=== PATIENT | female | born 1995 | race Caucasian/White ===

== ENCOUNTER 2016-12-19 09:08 | Emergency (ER) | payer SELFPAY ==
[~2016-12-19] VITALS: Ht 152.4 cm; Wt 68.0 kg
[~2016-12-19 09:08] MED LIST: MOME17I; MONT10TA2 PO; PRED20 PO; WAL-10TA2 PO; ZITH250T PO
[2016-12-19 09:10] VITALS: BP 120/84; PULSE 104; RESP 20; TEMP 98.2; O2SAT 99
[2016-12-19] MEDS ORDERED: IBUPROFEN 800 MG TAB PO ONE (09:30)
--- NOTE | 2016-12-19 09:32 | PD ---
HPI Chief Complaint: Cold / Flu Symptoms Time Seen by Provider: 09:32 Travel History International Travel<30 days: No Contact w/Intl Traveler<30days: No Traveled to known affect area: No History of Present Illness HPI 21-year-old female presents to the emergency Department with complaint of sinus pressure, nasal congestion, ear pressure for 1 week and then she got better for about 2 or 3 days and then for the last 3 days has had the same symptoms. She denies cough. History of asthma and reports chest tightness and shortness of breath at times with relief after using her inhaler. She denies chest tightness or shortness of breath at this time. Has not taken her temperature and cannot report a MAXIMUM TEMPERATURE. Says her mom has told her she felt like she had a fever. Denies abdominal pain, nausea, vomiting. Has been using Afrin and loratadine with minimal symptom relief. Has not taken any other medications or tried any other treatments to alleviate her symptoms. Allergies to codeine, latex, Sudafed. No other modifying factors or associated signs and symptoms. PFSH Past Medical History Asthma: Yes Diminished Hearing: No Respiratory: Yes (ASTHMA) Immunizations Current: Yes ?: Not LMP: 11/17/16 Past Surgical History Oral Surgery: Yes Social History Alcohol Use: No Tobacco Use: No Substance Use: No Allergies-Medications (Allergen,Severity, Reaction): Coded Allergies: Codeine (Verified Allergy, Unknown, 06/10/15) Latex (Verified Allergy, Unknown, 06/10/15) Sudafed (Verified Allergy, Unknown, 06/10/15) Reported Meds & Prescriptions Reported Meds & Active Scripts Active Azithromycin 500 Mg Tab 500 Mg PO DAILY Zithromax Z-Jimmy (Azithromycin) 250 Mg Tab 250 Mg PO DIRECTED 5 Days 500 MG (2 TABLETS) PO ON DAY 1, THEN 250 MG (1 TABLET) PO ON DAYS 2 TO 5. Deltasone 20 Mg Tab (Prednisone) 20 Mg Tab 20 Mg PO BID 5 Days Reported Singulair (Montelukast Sodium) 10 Mg Tab 10 Mg PO HS Nasonex (Mometasone Furoate) 50 Mcg/Ac Spr 2 [place] NA DAILY SPRAY IN EACH NOSTRIL Loratadine 10 Mg Tab 10 Mg PO DAILY Review of Systems Except as stated in HPI: all other systems reviewed are Neg Physical Exam Narrative GENERAL: Well-nourished, well-developed female patient, in no acute distress SKIN: Warm and dry. No rash. HEAD: Atraumatic. Normocephalic. EYES: Pupils equal and round at 3 mm with brisk reaction. No scleral icterus. No injection or drainage. PERRLA. ENT: Mucosa pink and moist. No erythema or exudates. No uvular edema. No uvular , palatal, or tonsillar deviation. Airway patent. Nasal congestion noted. EARS: Bilateral pinnae and external canals appear within normal limits. Bilateral tympanic membranes without erythema, dullness or perforation. NECK: Trachea midline. No lymphadenopathy. CARDIOVASCULAR: Regular rate and rhythm. No murmur appreciated. RESPIRATORY: No accessory muscle use. Clear to auscultation. Breath sounds equal bilaterally. GASTROINTESTINAL: Abdomen soft, non-tender, nondistended. Hepatic and splenic margins not palpable. Bowel sounds are active 4 quadrants. MUSCULOSKELETAL: No obvious deformities. No clubbing. No cyanosis. No edema. NEUROLOGICAL: Awake and alert. Oriented 3. No obvious cranial nerve deficits. Motor grossly within normal limits. Normal speech. Moves all extremities. 5/5 strength to all extremities. PSYCHIATRIC: Appropriate mood and affect; insight and judgment normal. Data Data Last Documented VS Vital Signs Date Time Temp Pulse Resp B/P Pulse Ox O2 Delivery O2 Flow Rate FiO2 12/19/16 09:10 98.2 104 20 120/84 99 Room Air Orders MDM Medical Decision Making Medical Screen Exam Complete: Yes Emergency Medical Condition: Yes Medical Record Reviewed: Yes Differential Diagnosis Upper respiratory infection, sinusitis, bronchitis, asthma exacerbation Narrative Course 21-year-old female physical examination consistent with a URI. She is afebrile and nontoxic-appearing. Patient requested azithromycin antibiotic for home. I will prescribe antibiotic secondary to length of illness. Azithromycin prescribed for home. Patient verbalizes understanding and agreement with treatment plan. Patient is medically cleared and stable for discharge. Discussed reasons to return to the emergency department. Instructed patient to follow up with primary care provider. Patient agrees with treatment plan. The patients vital signs are stable and the patient is stable for outpatient follow- up and treatment. Patient discharged home, stable and in no acute distress. Diagnosis Primary Impression: URI (upper respiratory infection) Qualified Code: J06.9 - Upper respiratory tract infection, unspecified type Referrals: Primary Care Physician Patient Instructions: General Instructions, Safe Use of Cough and Cold Medicines (ED), Upper Respiratory Infection (ED) Departure Forms: School Release, Return to School Date: Dec 21, 2016 Tests/Procedures Additional Instructions: Antibiotics as prescribed and complete full course Ibuprofen or Tylenol as instructed and as needed for fever/pain [id number] cough and cold medications as directed and as needed for symptom management Get plenty of sleep/rest Drink plenty of fluids to prevent dehydration; popsicles and Gatorade Use an air humidifier/turn off ceiling fans Follow-up with primary care provider Return immediately to the emergency department with worsening of symptoms Med/Other Pt SpecificInfo: Prescription(s) given Scripts Azithromycin 500 Mg [id number] Mg PO DAILY #5 TAB Ref 0 Prov:Elisabet Sosa 12/19/16 Disposition: 01 DISCHARGE HOME Condition: Stable Elisabet Sosa Dec 19, 2016 09:32
[2016-12-19] MEDS ORDERED: AZIT500T2 PO (09:33)
== END 2016-12-19 10:00 | disposition home or self-care (01) ==
LOC: NEPK 09:08
DX: J06.9 Acute upper respiratory infection, unspecified (principal); Z87.09 Personal history of other diseases of the respiratory system
CPT/HCPCS: 99283

== ENCOUNTER 2017-04-23 20:33 | Emergency (ER) | payer SELFPAY ==
[~2017-04-23] VITALS: Ht 160 cm; Wt 65.0 kg
[~2017-04-23 20:33] MED LIST changes: +AZIT500T2 PO
[2017-04-23 20:36] VITALS: BP 135/69; PULSE 85; RESP 16; TEMP 98.3; O2SAT 98
--- NOTE | 2017-04-23 20:58 | PD ---
Physical Exam Time Seen by Provider: 20:56 Narrative 21 y/o female here with white vaginal d/c for 2.5 weeks, imrpoved with monistat , worsened past few days. She notes that she has had a new sexual partner one week ago. Vital signs reviewed. Seen at triage desk. Awaiting bed placement. Data Data Last Documented VS Vital Signs Date Time Temp Pulse Resp B/P Pulse Ox O2 Delivery O2 Flow Rate FiO2 04/23/17 20:36 98.3 85 16 135/69 98 MDM Medical Record Reviewed: Yes Supervised Visit with RICHARD: Rich Aranda Apr 23, 2017 20:57
[2017-04-23 21:39] LABS: BLOOD, URINE NEG (NEG); COMMENT (UR) CULT NOT INDICATED; CULTURE IF INDICATED CULT NOT INDICATED; GLUCOSE,URINE NEG (NEG); KETONE, URINE NEG (NEG); NITRITE,URINE NEG (NEG); PH, URINE 6.5 (5.0-8.5); SQUAMOUS EPITHELIAL CELL URINE 7 /hpf (0-5); URINE COLOR YELLOW (YELLW/STRAW)
--- NOTE | 2017-04-23 22:25 | PD ---
HPI Chief Complaint: Coat Checker Problem/Complaint Time Seen by Provider: 22:18 Travel History International Travel<30 days: No Contact w/Intl Traveler<30days: No Traveled to known affect area: No History of Present Illness HPI Patient is a 21-year-old female presents emergency department for a thick white discharge per vagina for the past week. Patient states that she had a sexual encounter with a new partner last week and she had some pain in the left lower quadrant while they were having intercourse which caused her to hold intercourse. She states she has a history of PCO asfor similar to her prior flares. She states the pain is fairly mild since. She states that she tried [id number] treatment for yeast infection and did not help. Associated symptoms are itching and burning. Denies any diarrhea constipation nausea or vomiting or fevers. PFSH Past Medical History Asthma: Yes Diminished Hearing: No Respiratory: Yes (ASTHMA) Immunizations Current: Yes Past Surgical History Oral Surgery: Yes Social History Alcohol Use: No Tobacco Use: No Substance Use: No Allergies-Medications (Allergen,Severity, Reaction): Coded Allergies: Naproxen (Verified Allergy, Mild, Itching, 04/23/17) Codeine (Verified Allergy, Unknown, 04/23/17) Latex (Verified Allergy, Unknown, 04/23/17) Sudafed (Verified Allergy, Unknown, 04/23/17) Reported Meds & Prescriptions Reported Meds & Active Scripts Active Flagyl (Metronidazole) 500 Mg Tab 500 Mg PO BID 7 Days Reported Ventolin Hfa 18 GM Inh (Albuterol Sulfate) 90 Mcg/Act Aer 2 Puff INH Q4-6H PRN Symbicort Inh (Budesonide/Formoterol Fumarate) 80-4.5 Mcg/Act Aero 2 Puff INH Q12HR Claritin (Loratadine) 10 Mg Cap 10 Mg PO DAILY Afrin Nasal [place] (Oxymetazoline HCl) 0.05% [place] 2-3 [place] EACH NARE Q12H PRN Flonase Nasal [place] (Fluticasone Nasal [place]) 50 Mcg/Act [place] 50 Mcg EACH NARE BID Review of Systems Except as stated in HPI: all other systems reviewed are Neg Physical Exam Narrative GENERAL: Well-developed well-nourished, laughing with her friend in no obvious distress. SKIN: Focused skin assessment warm/dry. HEAD: Atraumatic. Normocephalic. EYES: Pupils equal and round. No scleral icterus. No injection or drainage. ENT: No nasal bleeding or discharge. Mucous membranes pink and moist. NECK: Trachea midline. No JVD. CARDIOVASCULAR: Regular rate and rhythm. No murmur appreciated. RESPIRATORY: No accessory muscle use. Clear to auscultation. Breath sounds equal bilaterally. GASTROINTESTINAL: Abdomen soft, non-tender, nondistended. Hepatic and splenic margins not palpable. GENITOURINARY: patient exam is performed with female nurse relief pharmacist present at all times. Grossly normal external female genitalia, patient has discharge which has both yeast characteristics and BV characteristics to it. No cervical motion tenderness no bimanual tenderness. MUSCULOSKELETAL: No obvious deformities. No clubbing. No cyanosis. No edema. NEUROLOGICAL: Awake and alert. No obvious cranial nerve deficits. Motor grossly within normal limits. Normal speech. PSYCHIATRIC: Appropriate mood and affect; insight and judgment normal. Data Data Last Documented VS Vital Signs Date Time Temp Pulse Resp B/P Pulse Ox O2 Delivery O2 Flow Rate FiO2 04/23/17 23:46 18 04/23/17 20:36 98.3 85 135/69 98 Orders Urinalysis - C+S If Indicated (04/23/17 20:59) Ed Urine Pregnancytest Poc (04/23/17 20:59) Wet Prep Profile (04/23/17 22:25) Gc And Chlamydia Pcr (04/23/17 22:25) Fluconazole 400 Mg Premix Bag (Diflucan (04/24/17 00:15) Fluconazole (Diflucan) (04/24/17 00:15) Labs Laboratory Tests Test 04/23/17 04/23/17 21:00 23:40 Urine Color YELLOW Urine Turbidity HAZY Urine pH 6.5 Urine Specific [place] 1.020 Urine Protein NEG mg/dL Urine Glucose (UA) NEG mg/dL Urine Ketones NEG mg/dL Urine Occult Blood NEG Urine Nitrite NEG Urine Bilirubin NEG Urine Urobilinogen LESS THAN 2.0 MG/DL Urine Leukocyte Esterase LARGE Urine RBC 1 /hpf Urine WBC 4 /hpf Urine Squamous Epithelial 7 /hpf Cells Microscopic Urinalysis Comment CULT NOT INDICATED Clue Cells (Wet Prep) NONE SEEN Vaginal Trichomonas (Wet Prep) NONE SEEN Vaginal Yeast (Wet Prep) NONE SEEN MDM Medical Decision Making Medical Screen Exam Complete: Yes Emergency Medical Condition: Yes Differential Diagnosis BV, CVA, STD. Ovarian pathology was briefly considered but her physical exam shows no tenderness. Narrative Course Patient roomed emerged permit, abdomen is benign, physical exam of her vaginal vault shows BV versus CVA. Will be given Diflucan and discharged on Flagyl. She was offered empiric therapy for STDs and she declined at this time. She is stable for discharge. test negative. Diagnosis Primary Impression: BV (bacterial vaginosis) Med/Other Pt SpecificInfo: Prescription(s) given Scripts Metronidazole (Flagyl)500 Mg Chd030 Mg PO BID 7 Days Ref 0 Prov:Dav Barrios MD 04/24/17 Disposition: DISCHARGE HOME Condition: Stable Dav Barrios MD Apr 23, 2017 22:25
[2017-04-23] MEDS ORDERED: SYMB80AE INH (23:52)
[2017-04-23] MEDS ORDERED: CLAR10CA3 PO (23:52)
[2017-04-23] MEDS ORDERED: VENTAER INH (23:52)
[2017-04-23] MEDS ORDERED: AFRI0.052 EACH NARE (23:52)
[2017-04-23] MEDS ORDERED: FLUT1SPR5 EACH NARE (23:52)
[2017-04-24] MEDS ORDERED: METR-1 PO (00:03)
[2017-04-24] MEDS ORDERED: FLUCONAZOLE 400 MG PREMIX BAG 200 ML IV ONE (00:15)
[2017-04-24] MEDS ORDERED: FLUCONAZOLE 100 MG TAB PO ONE (00:15)
[2017-04-24 01:20] LABS: CHLAMYDIA PCR NOT DETECTED (NOT DETECT); NEISSERIA PCR NOT DETECTED (NOT DETECT)
== END 2017-04-24 00:35 | disposition home or self-care (01) ==
LOC: NEPD 20:33
DX: N76.0 Acute vaginitis (principal); B96.89 Other specified bacterial agents as the cause of diseases classified elsewhere; J45.909 Unspecified asthma, uncomplicated
CPT/HCPCS: 81001; 84703; 87210; 87491; 87591; 99283

== ENCOUNTER 2017-08-21 11:42 | Emergency (ER) | payer OTHER ==
[~2017-08-21 11:42] MED LIST changes: +AFRI0.052 EACH NARE; -AZIT500T2 PO; +CLAR10CA3 PO; +FLUT1SPR5 EACH NARE; +METR-1 PO; -MOME17I; -MONT10TA2 PO; -PRED20 PO; +SYMB80AE INH; +VENTAER INH; -WAL-10TA2 PO; -ZITH250T PO
[2017-08-21 11:45] VITALS: BP 122/80; PULSE 129; RESP 18; TEMP 98.6; O2SAT 99
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
[2017-08-21] MEDS ORDERED: SODIUM CHLOR 0.9% 1000 ML INJ 1,000 ML IV ONE ×2 (14:15)
[2017-08-21] MEDS ORDERED: ONDANSETRON ODT 4 MG TAB PO ONE (14:15)
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
[2017-08-21 15:31] LABS: AUTOMATED NEUTROPHIL # 6.4 TH/MM3 (1.8-7.7); BASOPHIL % 0.2 % (0.0-2.0); EOSINOPHIL % 0.3 % (0.0-4.0); HEMATOCRIT 40.2 % (35.0-46.0); HEMO FLAGS DIFF FINAL; LYMPH % 10.3 % (9.0-44.0); LYMPHOCYTE # 0.8 TH/MM3 (1.0-4.8); MEAN CELL VOLUME 90.5 FL (80.0-100.0); MEAN CORPUSCULAR HEMOGLOBIN 30.9 PG (27.0-34.0); MEAN CORPUSCULAR HGB CONC 34.1 % (32.0-36.0); MONO % 9.4 % (0.0-8.0); NEUT % 79.8 % (16.0-70.0); PLATELET COUNT 194 TH/MM3 (150-450); RED BLOOD COUNT 4.44 MIL/MM3 (4.00-5.30); RED CELL DISTRIBUTION WIDTH 12.5 % (11.6-17.2)
[2017-08-21 15:56] LABS: BICARBONATE 27.3 MEQ/L (21.0-32.0); POTASSIUM 3.6 MEQ/L (3.5-5.1)
[2017-08-21] MEDS ORDERED: ROBA750T PO (16:10)
[2017-08-21] MEDS ORDERED: ZOFR4TAB3 SL (16:10)
[2017-08-21 16:54] VITALS: BP 119/58; PULSE 100; RESP 18; TEMP 98.9; O2SAT 100
== END 2017-08-21 19:00 | disposition home or self-care (01) ==
LOC: NEPK 11:42
DX: S39.012A Strain of muscle, fascia and tendon of lower back, initial encounter (principal); S20.212A Contusion of left front wall of thorax, initial encounter; S40.021A Contusion of right upper arm, initial encounter; K52.9 Noninfective gastroenteritis and colitis, unspecified; V42.6XXA Car passenger injured in collision with two- or three-wheeled motor vehicle in traffic accident, initial encounter
CPT/HCPCS: 71020; 80048; 85025; 96360; 96361; 99284; J7030

== ENCOUNTER 2017-09-06 17:01 | Emergency (ER) | payer SELFPAY ==
[~2017-09-06] VITALS: Ht 152.4 cm; Wt 68.0 kg
[~2017-09-06 17:01] MED LIST changes: -AFRI0.052 EACH NARE; -FLUT1SPR5 EACH NARE; -METR-1 PO; +ROBA750T PO; -SYMB80AE INH; -VENTAER INH; +ZOFR4TAB3 SL
[2017-09-06 17:02] VITALS: BP 124/76; PULSE 89; RESP 16; TEMP 97.9; O2SAT 98
[2017-09-06] MEDS ORDERED: HUMIBIDDM PO (18:45)
[2017-09-06] MEDS ORDERED: TIZA2CAP3 PO (18:45)
[2017-09-06] MEDS ORDERED: MELO7.5T27 PO (18:45)
--- NOTE | 2017-09-06 18:58 | PD ---
HPI Chief Complaint: Cold / Flu Symptoms Time Seen by Provider: 18:40 Travel History International Travel<30 days: No Contact w/Intl Traveler<30days: No Traveled to known affect area: No History of Present Illness HPI 22-year-old female presents to emergency department with a cough for one month. Patient states that her cough has been productive of thick yellow-green sputum and she is also had nasal congestion. States she has not been evaluated for this cough however, she has been advised to use multiple regimens to include Mucinex and Afrin Afrin and this has not reduced her cough. States she has been using her albuterol inhalers as well but continues to cough. States she has chest wall discomfort with laying down. Patient denies recent travel, surgeries, immobilizations, fractures or blood disorders. Patient denies shortness of breath. 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 Patient has a history of asthma and does not follow-up with a area operations director or primary care physician regularly. PFSH Past Medical History Asthma: Yes Diminished Hearing: No Respiratory: Yes (ASTHMA) Immunizations Current: Yes ?: Not LMP: 08/2017 Past Surgical History Oral Surgery: Yes Social History Alcohol Use: Yes (OCC) Tobacco Use: No Substance Use: Yes (MARIJUANA OCC) Allergies-Medications (Allergen,Severity, Reaction): Coded Allergies: naproxen (Unverified Allergy, Mild, Itching, 09/06/17) codeine (Unverified Allergy, Unknown, 09/06/17) latex (Unverified Allergy, Unknown, 09/06/17) pseudoephedrine (Unverified Allergy, Unknown, 09/06/17) Reported Meds & Prescriptions Reported Meds & Active Scripts Active Tessalon Perles (Benzonatate) 100 Mg Cap 200 Mg PO TID PRN Prednisone 20 Mg Tab 20 Mg PO BID 5 Days Azithromycin 250 Mg Tab 250 Mg PO DIRECTED Take 2 tabs (500 mg) on day 1 then 1 tab daily x 4 days. Zofran Odt (Ondansetron Odt) 4 Mg Tab 4 Mg SL Q8HR PRN Reported Mucinex DM (Dextromethorphan-Guaifenesin) 30-600 Mg Tab 2 Tab PO DAILY PRN Meloxicam 7.5 Mg Tab 7.5 Mg PO BID PRN Tizanidine (Tizanidine HCl) 2 Mg Cap 2 Mg PO BID PRN Claritin (Loratadine) 10 Mg Cap 10 Mg PO DAILY Review of Systems Except as stated in HPI: all other systems reviewed are Neg Physical Exam Narrative GENERAL: Well-developed well-nourished in no apparent distress SKIN: Focused skin assessment warm/dry. HEAD: Atraumatic. Normocephalic. EYES: Pupils equal and round. No scleral icterus. No injection or drainage. ENT: No nasal bleeding or discharge. Mucous membranes pink and moist. Pharynx not injected without tonsillar atrophy or exudate. NECK: Trachea midline. No JVD. No lymphadenopathy CARDIOVASCULAR: Regular rate and rhythm. No murmur appreciated. RESPIRATORY: No accessory muscle use. Faint diffuse wheezes, without rales. GASTROINTESTINAL: Abdomen soft, non-tender, nondistended. MUSCULOSKELETAL: No obvious deformities. No clubbing. No cyanosis. No edema. No CVA tenderness NEUROLOGICAL: Awake and alert. No obvious cranial nerve deficits. Motor grossly within normal limits. Normal speech. PSYCHIATRIC: Appropriate mood and affect; insight and judgment normal. Data Data Last Documented VS Vital Signs Date Time Temp Pulse Resp B/P (MAP) Pulse Ox O2 Delivery O2 Flow Rate FiO2 09/06/17 20:45 09/06/17 17:02 97.9 89 16 98 Orders Orders Chest, Single Ap (09/06/17 ) Methylprednisolone So Succ Inj (Solumedr (09/06/17 19:00) Ed Discharge Order (09/06/17 20:31) MDM Medical Decision Making Medical Screen Exam Complete: Yes Emergency Medical Condition: Yes Differential Diagnosis Asthma exacerbation, bronchitis, pneumonia Narrative Course 22-year-old female presents to emergency department with a cough for one month. Patient states that her cough has been productive of thick yellow-green sputum and she is also had nasal congestion. States she has not been evaluated for this cough however, she has been advised to use multiple regimens to include Mucinex and Afrin Afrin and this has not reduced her cough. States she has been using her albuterol inhalers as well but continues to cough. States she has chest wall discomfort with laying down. Patient denies recent travel, surgeries, immobilizations, fractures or blood disorders. Patient denies shortness of breath. 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 Patient has a history of asthma and does not follow-up with a area operations director or primary care physician regularly. Vital signs stable. I explained to the mother and patient that it is likely that the cough is related to an extended viral syndrome. However, will evaluate for possible pneumonia vs asthma exacerbation. Administered solumedol 125mg in the ED. Chest xray pending as of transfer of care to Rich Delatorre PA-C. Referrals: [facility] Benzonatate (Tessalon Perles) 100 Mg Cap 200 MG PO TID Y for COUGH, #30 CAP 0 Refills Prov: Luis Martínez MD 09/06/17 Prednisone (Prednisone) 20 Mg Tab 20 MG PO BID for 5 Days, #10 TAB 0 Refills Prov: Luis Martínez MD 09/06/17 Azithromycin (Azithromycin) 250 Mg Tab 250 MG PO DIRECTED for Infection, #6 TAB 0 Refills Take 2 tabs (500 mg) on day 1 then 1 tab daily x 4 days. Prov: Luis Martínez MD 09/06/17 Disposition: 01 DISCHARGE HOME Condition: Stable Pat Valdez Sep 06, 2017 18:58
[2017-09-06] MEDS ORDERED: methylPREDNISolone SOD SUCC 125 MG/2 ML VIAL IV PUSH ONE (19:00)
--- NOTE | 2017-09-06 19:54 | RADRPT ---
EXAM DATE/TIME: 09/06/2017 19:18 [place] COMPARISON: No previous studies available for comparison. INDICATIONS : Cough, shortness of breath for 1 month MEDICAL HISTORY : Asthma SURGICAL HISTORY : None. ENCOUNTER: Initial ACUITY: 1 month PAIN SCORE: 0/10 LOCATION: Bilateral chest FINDINGS: A single view of the chest demonstrates the lungs to be symmetrically aerated without evidence of mas s, infiltrate or effusion. The cardiomediastinal contours are unremarkable. Osseous structures are intact. CONCLUSION: The lungs are clear. Lucius Jack MD on September 06, 2017 at 19:52 Board Certified Radiologist. This report was verified electronically.
[2017-09-06] MEDS ORDERED: AZIT250T3 PO (20:32)
[2017-09-06] MEDS ORDERED: BENZ100 PO (20:32)
[2017-09-06] MEDS ORDERED: PRED20 PO (20:32)
--- NOTE | 2017-09-06 20:35 | PD ---
Physical Exam Time Seen by Provider: 20:25 Data Data Last Documented VS Vital Signs Date Time Temp Pulse Resp B/P (MAP) Pulse Ox O2 Delivery O2 Flow Rate FiO2 09/06/17 17:02 97.9 89 16 124/76 (92) 98 Orders Orders Chest, Single Ap (09/06/17 ) Methylprednisolone So Succ Inj (Solumedr (09/06/17 19:00) Ed Discharge Order (09/06/17 20:31) MDM Medical Record Reviewed: Yes Supervised Visit with RICHARD: No Narrative Course Please see previous providers notes. This patient was signed out to me to follow-up on chest x-ray results. She has a history of asthma and has had a productive cough for greater than 1 month. She has received [employer] mental treatment prior to my examination she is feeling some improvement. Lungs are currently clear to auscultation. Chest x-ray is normal. The patient is being discharged with azithromycin, prednisone, Tessalon. Diagnosis Primary Impression: Asthma exacerbation Referrals: [facility] Additional Instruction: Medication as prescribed. Albuterol nebulizer every 4 hours as needed for wheezing. Stay well hydrated well-nourished. Follow up with primary care physician and return for any emergent medical conditions. Med/Other Pt SpecificInfo: Prescription(s) given Scripts Benzonatate (Tessalon Perles) 100 Mg Cap 200 MG PO TID Y for COUGH, #30 CAP 0 Refills Prov: Luis Martínez MD 09/06/17 Prednisone (Prednisone) 20 Mg Tab 20 MG PO BID for 5 Days, #10 TAB 0 Refills Prov: Luis Martínez MD 09/06/17 Azithromycin (Azithromycin) 250 Mg Tab 250 MG PO DIRECTED for Infection, #6 TAB 0 Refills Take 2 tabs (500 mg) on day 1 then 1 tab daily x 4 days. Prov: Luis Martínez MD 09/06/17 Disposition: 01 DISCHARGE HOME Condition: Stable Rich Grissom Sep 06, 2017 20:35
== END 2017-09-06 20:49 | disposition home or self-care (01) ==
LOC: NEPD 17:01
DX: J45.901 Unspecified asthma with (acute) exacerbation (principal); R07.89 Other chest pain
CPT/HCPCS: 71010; 96372; 99284; J2930

== ENCOUNTER 2017-09-23 10:26 | Emergency (ER) | payer SELFPAY ==
[~2017-09-23] VITALS: Ht 152.4 cm; Wt 67.0 kg
[~2017-09-23 10:26] MED LIST changes: +AZIT250T3 PO; +BENZ100 PO; +HUMIBIDDM PO; +MELO7.5T27 PO; +PRED20 PO; -ROBA750T PO; +TIZA2CAP3 PO
[2017-09-23 10:28] VITALS: BP 112/81; PULSE 81; RESP 16; TEMP 98.3; O2SAT 97
--- NOTE | 2017-09-23 11:48 | PD ---
HPI Chief Complaint: Headache Time Seen by Provider: 11:40 Travel History International Travel<30 days: No Contact w/Intl Traveler<30days: No Traveled to known affect area: No History of Present Illness HPI 22-year-old female presents to the emergency Department with complaint of migraine headache 3 hours. She has history of migraine headaches since she was 17 years old. This headache is consistent with past headaches. She is seeing a neurologist at [facility] and has an appointment either tomorrow or Saturday. She had a CT of her brain and an MRI in the past month. She does not know the results. She is taking meloxicam and Tizanidine for symptom management. Says her headache is gotten better since taking these medications and has gone from a 9 to a 7/10. Reports phonophobia. Denies photophobia. Reports nausea earlier today, without vomiting. Denies nausea at this time. Denies focal deficits or weakness. Denies confusion, disorientation, change in mentation, slurred speech. Reports history of vision loss with migraines. Has some blurriness this morning, but not now. Headache was frontal and is now moving to the back of her head. Describes it as a pounding sensation. Rates it 7/10. Allergies to codeine, latex, naproxen, pseudoephedrine. No primary care provider. History of asthma. Has no other medical complaints. No other modifying factors or associated signs and symptoms. PFSH Past Medical History Asthma: Yes Diminished Hearing: No Respiratory: Yes (ASTHMA) Immunizations Current: Yes ?: Not LMP: 08/2017 Past Surgical History Oral Surgery: Yes Social History Alcohol Use: Yes (OCC) Tobacco Use: No Substance Use: Yes (MARIJUANA OCC) Allergies-Medications (Allergen,Severity, Reaction): Coded Allergies: naproxen (Unverified Allergy, Mild, Itching, 09/23/17) codeine (Unverified Allergy, Unknown, 09/23/17) latex (Unverified Allergy, Unknown, 09/23/17) pseudoephedrine (Unverified Allergy, Unknown, 09/23/17) Reported Meds & Prescriptions Reported Meds & Active Scripts Active Zofran Odt (Ondansetron Odt) 4 Mg Tab 4 Mg SL Q8HR PRN Reported Meloxicam 7.5 Mg Tab 7.5 Mg PO BID PRN Tizanidine (Tizanidine HCl) 2 Mg Cap 2 Mg PO BID PRN Claritin (Loratadine) 10 Mg Cap 10 Mg PO DAILY Review of Systems Except as stated in HPI: all other systems reviewed are Neg Physical Exam Narrative GENERAL: Well-nourished, well-developed female patient, in no acute distress SKIN: Warm and dry. HEAD: Atraumatic. Normocephalic. No facial droop noted. Tongue midline. Finger to nose test normal. EYES: Pupils equal and round at 3 mm with brisk reaction. No scleral icterus. No injection or drainage. PERRLA. EOMI. ENT: Mucosa pink and moist. Airway patent. NECK: Trachea midline. No lymphadenopathy. CARDIOVASCULAR: Regular rate. RESPIRATORY: No accessory muscle use. GASTROINTESTINAL: Flat. MUSCULOSKELETAL: No obvious deformities. No clubbing. No cyanosis. No edema. NEUROLOGICAL: Awake and alert. Oriented 3. No obvious cranial nerve deficits. Motor grossly within normal limits. Normal speech. No ataxia. No mid -line drift. Moves all extremities. No upper or lower extremity drift. Sensory intact and equal from head to toe. 5/5 strength to all extremities. PSYCHIATRIC: Appropriate mood and affect; insight and judgment normal. Data Data Last Documented VS Vital Signs Date Time Temp Pulse Resp B/P (MAP) Pulse Ox O2 Delivery O2 Flow Rate FiO2 09/23/17 10:28 98.3 81 16 112/81 (91) 97 Orders Orders Prochlorperazine Maleate (Compazine) (09/23/17 12:00) Ketorolac Inj (Toradol Inj) (09/23/17 12:00) Diphenhydramine Inj (Benadryl Inj) (09/23/17 12:00) Ed Discharge Order (09/23/17 12:38) [facility] Medical Decision Making Medical Screen Exam Complete: Yes Emergency Medical Condition: Yes Medical Record Reviewed: Yes Differential Diagnosis Migraine headache, tension headache, acute headache Narrative Course This is a 22-year-old female with history of migraine headaches and she was 17 years old. She has had onset of migraine headache 3 hours with no relief with meloxicam or Tizanidine. She has a neurologist appointment tomorrow or [place] with [facility]. She had a CT and an MRI of the brain within the past month. She doesn't know the results. Her neuro exam is unremarkable. Her headache is consistent with past migraines. I do not feel it is necessary to repeat imaging at this time. Compazine, Toradol, Benadryl ordered. 1238: Patient reports improvement in symptoms. Rates pain headache 11/23. Instructed patient to follow with neurologist at scheduled appointment. Instructed patient to follow up with primary care provider. Patient verbalizes understanding and agreement with treatment plan. Patient is medically cleared and stable for discharge. Discussed reasons to return to the emergency department. Patient agrees with treatment plan. The patients vital signs are stable and the patient is stable for outpatient follow-up and treatment. Patient discharged home, stable and in no acute distress. Diagnosis Primary Impression: Headache Qualified Codes: R51 - Headache Referrals: [facility] Neurologist Primary Care Physician Patient Instructions: Acute Headache (ED), General Instructions, Migraine Headache (ED) Departure Forms: Tests/Procedures, Work Release Enter return to work date: Sep 24, 2017 Additional Instructions: Ibuprofen or Tylenol as directed and as needed to reduce headache Get plenty of rest: do not over sleep rest and relax in a dark, quiet room as needed Place an ice pack on the back of her neck to reduce head pain as needed Keep a headache diary of what triggers her headaches and what treatment is most effective Avoid identifiable triggers Avoid smoking, alcohol and caffeine consumption Reduce stress Follow-up with primary care provider within 1-2 days Follow-up with neurology Return immediately to the emergency department with worsening symptoms Med/Other Pt SpecificInfo: No Change to Meds, No Meds Exist/No RX given Disposition: 01 DISCHARGE HOME Condition: Stable Elisabet Sosa Sep 23, 2017 11:48
[2017-09-23] MEDS ORDERED: diphenhydrAMINE HCL 50 MG/ML VIAL IM ONE (12:00)
[2017-09-23] MEDS ORDERED: PROCHLORPERAZINE MALEATE 10 MG TAB PO ONE (12:00)
[2017-09-23] MEDS ORDERED: KETOROLAC TROMETHAMINE 60 MG/2 ML (IM) VIAL IM ONE (12:00)
== END 2017-09-23 12:58 | disposition home or self-care (01) ==
LOC: NEPK 10:26
DX: R51 Headache (principal); R11.0 Nausea; J45.909 Unspecified asthma, uncomplicated; Z79.899 Other long term (current) drug therapy; Z88.5 Allergy status to narcotic agent
CPT/HCPCS: 96372; 99284; J1200; J1885; Q0164